=== PATIENT | female | born 1965 | race Caucasian/White ===

== ENCOUNTER 2024-12-23 07:26 | Outpatient (CLI) | payer OTHER, SELFPAY ==
--- NOTE | ~2024-12-23 | CT_ITS ---
CT of the Abdomen and Pelvis: Indication: Abdominal pain Technique: 2.5 mm axial scans were obtained through the abdomen and pelvis following intravenous adm inistration of 100 cc of Omnipaque 350. Dose reduction technique was used on this scan by utilizing a utomated exposure control and iterative reconstruction technique. The dose-length product (DLP) was 1 194.60 mGy-cm. Findings: Scans through the lung bases are unremarkable. The liver, spleen, pancreas, adrenals and kidneys are within normal limits. Cholecystectomy clips ar e present. No evidence of aortic aneurysm. No lymphadenopathy. No bowel obstruction or bowel wall thickening. There is no evidence to suggest acute appendicitis. Images through the pelvis were performed. Urinary bladder unremarkable. 3 cm left adnexal cyst presen t. Status post probable hysterectomy. No ascites. Impression: 3 cm left adnexal cyst. Consider gynecologic follow-up given patient age. No other significant findings. Reviewed, dictated and finalized at [facility]. Impression: 3 cm left adnexal cyst. Consider gynecologic follow-up given patient age. No other significant findings.
--- OUTSIDE RECORDS SUMMARY | 2024-12-23 07:31 | XMS_ITS | Encounter Summary ---
Author Organization [facility] Address [address] [place] [address] Care Team Providers Care Senior Finance Manager Name Role Phone Lien Cortez MD Primary Care Provider Unavailable None, Provider Primary Care Provider Unavaila ble Encounter Details Date Type Department Care Team (Late st Contact Info) Description 03/29/2017 Abstract [place] [address] Lien Cortez MD Social History Tobacco Use Types Packs/Day Years Used Date Smoking Tobacco: Never Assessed Comments Unknown Sex and Gender Information Value Date Recorded Sex Assigned at Female 12/10/2024 10:00 AM CDT Legal Sex Female 9:01 PM CDT Gender Identity Not on file Sexual Orientation Not on file documented as of this encounter Plan of Treatment Not on file documented as of this encounter Visit Diagnoses Not on filedocumented in this encounter Care Teams Senior Finance Manager Relationship Specialty Start Date End Date Lien Cortez MD PCP - General 01/09/15 08/06/17 None, ProviderMD PCP - General UNKNOWN PHYSICIAN SPECIALTY 12/10/24 documented as of this encounter
--- OUTSIDE RECORDS SUMMARY | 2024-12-23 07:31 | XMS_ITS | Encounter Summary ---
Author Organization [facility] Address [address] [place] [address] Care Team Providers Care Reading Assistant Name Role Phone Janette Rodriguez MD Primary Care Provider [phone] Encounter Details Date Type Department Care Team (Latest Contact Info) Description 12/20/2024 Results Follow-Up [facility] at [place] [address] [facility] [address] [address] [place] [address] Jazmine Kent, ANP [address] [facility] [address] [place] [address] TSH REFLEXIVE, HEMOGLOBIN A1C, COMPREHENSIVE METABOLIC PANEL, Additional followed-up results: 3 Social History Tobacco Use Types Packs/Day Years Used Date Smoking Tobacco: Never Smokeless Tobacco: Never Alcohol Use Standard Drinks/Week Comments Yes 0 (1 standard drink = 0.6 oz pure alcohol) Ocassionally- at most3-4 glasses wine / mo Comments No Sex and Gender Information Value Date Recorded Sex Assigned at Not on file Legal Sex Female 3:23 PM CDT Gender Identity Not on file Sexual Orientation Not on file documented as of this encounter Miscellaneous Notes * Result Encounter Note - Nathalie Méndez RN - 12/20/2024 9:28 AM CDT Called patient and relayed message regarding lab results. Patient verbalized understanding. Lab appointment scheduled for 12/21/2024 @ 1100. Per patient, her CT scan is scheduled for 12/23/2024 at [facility]. * Result Encounter Note - Jazmine Kent ANP - 12/20/2024 7:03 AM CDT Contact patient regarding result. Labs negative for inflammation or infection. Potassium is high and needs repeated today or tomorrowplease. Continue to hydrate well. Get CT scan as planned. When / where is it scheduled? documented in this encounter Plan of Treatment Upcoming Encounters Date Type Department Care Team (Late st Contact Info) Description 03/17/2025 10:30 AM CDT Office Visit [facility] at [facility] [employer] [place] [address] [place] [address] Jazmine Kent ANP [address] [facility] [address] [facility] [address] [place] [address] documented as of this encounter Visit Diagnoses Not on filedocumented in this encounter Additional Health Concerns Assessment Noted Time PHQ-9 Depression Total Score: 2 12/17/19 25 11:00 AM CDT documented as of this encounter Care Teams Reading Assistant Relationship Specialty Start Date End Date Janette Rodriguez MD [address] [place] [address] PCP - General Internal Medicine 03/23/24 documented as of this encounter
--- OUTSIDE RECORDS SUMMARY | 2024-12-23 07:31 | XMS_ITS | Clinical Summary ---
Author Organization [facility] Address [facility] [place] [address] Care Team Providers Care Automotive Specialty Technician Name Role Phone None, Provider MD Primary Care Provider Unavaila ble Allergies Active Allergy Reactions Criticality Noted Date Comments Aluminum Itching High 12/10/2024 aluminum Aluminum Oxide Itching Low 03/23/2024 Amitriptyline Unknown 01/11/2015 Cephalexin Unknown 12/10/2024 Codeine Nausea and Vomiting,Vomiting Medium 03/23/2024 Gluten Meal Other (see comment) 03/23/2024 Minocycline Hives Medium 12/10/2024 Oxycodone-Acetaminophen Unknown,Vomiting Medium 2014 Sulfa Antibiotics Unknown,Vomiting Medium 03/23/2024 Sulfamethoxazole-Trimethopri m Hives,Unknown Medium 01/11/2015 Telithromycin Unknown 01/11/2015 Vancomycin Anaphylaxis,Unknown High 01/11/2015 Medications dicyclomine (BENTYL) 10 MG capsuleIndicat ions:Epigastri c pain Take 2 tablet (20 mg total) by mouth every 6 (six) hours for 10 days. 240 capsule 5 Active dicyclomine (BENTYL) 20 MG tabletIndicati ons:Epigastric pain Take 1 tablet (20 mg total) by mouth every 6 (six) hours for 10 days. 40 tablet 5 025 Discontinued(Al ternate therapy) dicyclomine (BENTYL) 10 MG capsuleIndicat ions:Epigastri c pain Take 2 tablet (20 mg total) by mouth every 6 (six) hours for 10 days. 240 capsule 5 025 Discontinued Encounters Date Type Department Care Team Description 12/10/2024 11:20 AM CDT Office Visit [facility] [address] [place] [address] Unruly Norris PA Abdominal Pain (Pt c/o all over abdominal pain X 2 weeks) 12/10/2024 11:10 AM CDT - 12/10/2024 11:59 PM CDT Hospital Encounter [facility] [address] [place], [place] [id number] Unruly Norris PA Discharge Disposition: Home or Self Care (Routine Discharge) 12/10/2024 Telephone [facility] FACILITY DEFAULT Unruly Norris PA Medication Problem 12/10/2024 MyChart Message Enc [facility] Internal Medicine [facility] [address] [place] [address] Unruly Norris PA Results 12/10/2024 Travel from Last 3 Months Family History Medical History Relation Comments Heart Attack Father Pulmonary Fibrosis Father Stroke (cerebrum) ([facility]) Mother Relation Status Comments Father Mother Alive Social History Tobacco Use Types Packs/Day Years Used Date Smoking Tobacco: Never Smokeless Tobacco: Never Tobacco Cessation:Counseling Given: No Alcohol Use Standard Drinks/Week Comments Yes 0 (1 standard drink = 0.6 oz pur e alcohol) social PHQ-2 Answer Date Recorded Patient Health Questionnaire-2 Score 0 12/10/2024 Comments No Sex and Gender Information Value Date Recorded Sex Assigned at Female 12/10/2024 10:00 AM CDT Legal Sex Female 9:01 PM CDT Gender Identity Not on file Sexual Orientation Not on file Last Filed Vital Signs Vital Sign Reading Time Taken Comments Blood Pressure 130/81 12/10/2024 10:32 AM CDT Pulse 74 12/10/2024 10:32 AM CDT Temperature 36.9 C (98.4 F) 12/10/2024 10:32 AM CDT Respiratory Rate 16 12/10/2024 10:32 AM CDT Oxygen Saturation 98% 12/10/2024 10:32 AM CDT Inhaled Oxygen Concentration - - Weight 91.6 kg (202 lb) 12/10/2024 10:32 AM CDT Height 160 cm (5' 3) 12/10/2024 10:32 AM CDT Body Mass Index 35.78 12/10/2024 10:32 AM CDT Plan of Treatment Health Maintenance Due Date Last Done Comments Cervical Cancer Screening Pa p Smear (Age 30 to 64) Every 3 Years 1966 Colorectal Cancer Screening Colonoscopy (10 Years) 1966 Annual Physical 1969 Hepatitis C 1984 DTaP, Tdap and Td Vaccines ( 1 - Tdap) 1985 Hepatitis B Vaccines (1 of 3 - 19+ 3-dose series) 1985 Cervical Cancer Screening Pa p with HPV Testing (Age 30 to 64) Every 5 Years 1996 Cervical Cancer Screening wi th HPV 1996 Mammogram Screening 2006 Pneumococcal Vaccine: 50+ Years (1 of 1 - PCV) 2016 Zoster Vaccines (1 of 2) 2016 COVID-19 Vaccine (3 - 2023-2 5 season) 2024 12/28/2020, 11/30/2020 PHQ-2 (Physician Dickens) Completed 12/10/2024 Meningococcal B Vaccine Aged Out No l onger eligible based on patient's age to complete this topic Meningococcal Vaccine Aged Out No bishop gallo eligible based on patient's age to complete this topic RSV Immunizations Under 20 Months Aged Out No longer eligible b ased on patient's age to complete this topic Procedures Procedure Name Priority Date/Time Associated Diagnosis Comments LIPASE STAT 12/10/2024 11:14 AM CDT Epigastric pain COMPREHENSIVE METABOLIC PANEL STAT 12/10/2024 11:14 AM CDT Epigastric pain from Last 3 Months Results * (ABNORMAL) COMPREHENSIVE METABOLIC PANEL (12/10/2024 11:14 AM CDT) GLUCOSE 104(H) 70 - 99 MG/DL 12/10/2024 11:[address] [facility] BUN 8 7 - 18 MG/DL 12/10/2024 11:34 AM CDT [facility] CREATININE S/P/B 0.83 0.55 - 1.02 MG/DL 12/10/2024 11:[address] [facility] SODIUM S/P/B 142 136 - 145 MMOL/L 12/10/2024 11:34 AM [facility] POTASSIUM S/P/B 4.8 3.5 - 5.1 MMOL/L 12/10/2024 11:[address] [facility] CHLORIDE S/P/B 104 100 - 108 MMOL/L 12/10/2024 11:34 AM [facility] CO2 32.7(H) 21 - 32 MMOL/L 12/10/2024 11:34 AM [facility] CALCIUM S/P/B 9.4 8.5 - 10.1 MG/DL 12/10/2024 11:34 AM [facility] BILIRUBIN TOTAL S/P/B 0.4 0.2 - 1.2 MG/DL 12/10/2024 11:34 AM [facility] TOTAL PROTEIN S/P/B 7.3 6.4 - 8.2 G/DL 12/10/2024 11:34 AM [facility] ALBUMIN S/P/B 3.8 3.4 - 5.0 G/DL 12/10/2024 11:34 AM [facility] AST 19 15 - 37 U/L 12/10/2024 11:34 AM [facility] ALT 24 14 - 55 U/L 12/10/2024 11:34 AM [facility] ALKALINE PHOSPHATASE S/P/B 80 50 - 136 U/L 12/10/2024 11:34 AM [facility] ANION GAP 5.3 5 - 15 MMOL/L 12/10/2024 11:[address] [facility] BUN CREATININE RATIO 9.6 6 - 26 12/10/2024 11:[address] [facility] A/G RATIO 1.1 1.0 - 2.0 RATIO 12/10/2024 11:[address] [facility] GFR ESTIMATE 82(L) >90 ML/MIN/1.7 3 M2 12/10/2024 11:[address] [facility] Comment: NOTE: eGFR is not calculated for patients <18 years of age. This is an estimated GFR calculation using the new CKD EPI creatinine equation without race and so does not require a correction factor for race. This estimated GFR should not be used for calculating drug doses. 12/10/2024 11:1 4 AM CDT [facility] Final Result Performing Organization Address City/[facility]/ZIP Co de Phone Number [facility] [address] [place] [address], [place] [phone] * LIPASE (12/10/2024 11:14 AM CDT) LIPASE 33 16 - 77 UNITS/L 12/10/2024 11:[address] [facility] 12/10/2024 11:1 4 AM CDT [facility] Final Result [facility] [address] [place] [address], [place] [phone] from Last 3 Months Care Teams Automotive Specialty Technician Relationship Specialty Start Date End Date None, Provider, MD PCP - General UNKNOWN PHYSICIAN SPECIALTY 12/10/24
--- OUTSIDE RECORDS SUMMARY | 2024-12-23 07:31 | XMS_ITS | Encounter Summary ---
Author Organization [facility] Address [facility] [place] [address] Care Team Providers Care Judge Name Role Phone None, Provider Primary Care Provider Sal rod Encounter Details Date Type Department Care Team ([facility] st Contact Info) Description 12/10/2024 OLXhart Message Enc [facility] Family [facility] Internal [facility] [address] [place] [address] [place] [id number] [place] [address] Results Social History Tobacco Use Types Packs/Day Years [...] on file documented as of this encounter Functional Status * Over the past 2 weeks, how often have you been bothered by any of the following problems? Question Answer Date of Assessment Author Status Little interest or pleasure in doing things Not at all 12/10/2024 10:39 AM MINAT Ney Bah MA Active Feeling down, depressed, or hopeless Not at all 12/10/2024 10:39 AM MINAT Evangelista Bah MA Active Patient Health Questionnaire-2 Score 0 12/10/2024 10:39 AM Jamison Roger MA Active * If you checked off any problems on this questionnaire so far, Question Answer Date of Assessment Author Status How difficult have these problems made it for you to do your work, take care of things at home, or get along with other people? Not difficult at all 12/10/2024 10:39 AM Ney Roger MA Active documented as of this encounter Plan of Treatment Not on file documented as of this encounter Visit Diagnoses Not on filedocumented in this encounter Care Teams Judge Relationship Specialty Start Date End Date None, Provider, PCP - General UNKNOWN PHYSICIAN SPECIALTY 12/10/24 documented as of this encounter
--- OUTSIDE RECORDS SUMMARY | 2024-12-23 07:31 | XMS_ITS | Clinical Summary ---
Author Organization [facility] [email or web address] [place] Address [address] [place] [address] Care Team Providers Care Lining Strap Closer Name Role Phone Janette Rodriguez MD Primary Care Provider [phone] Allergies Active Allergy Reactions Criticality Noted Date Comments Aluminum Rodriguez Itching Low 03/23/2024 Codeine Nausea and Vomiting Low 03/23/2024 Gluten Other (See Comments) 03/23/2024 Minocycline-Eyelid Cleanser 1 Other (See Comments) 03/23/2024 Issues using the drops. Sulfa (Sulfonamide Antibiotics) Unknown 03/23/2024 Vancomycin Anaphylaxis High 03/23/2024 Medications dicyclomine (BENTYL) 10 mg capsule Take 20 mg by mouth 4 times daily. 12/13/2024 Active Active Problems No known active problems Encounters Date Type Department Care Team Description 12/20/2024 Orders Only [facility] at [facility] [address] [place] [address] Jazmine [place] ANP Hyperkalemia (Primary Dx) 12/20/2024 Results Follow-Up [facility] [place] [address] [place] [address] Jazmine [place] ANP TSH REFLEXIVE, HEMOGLOBIN A1C, COMPREHENSIVE METABOLIC PANEL, Additional followed-up results: 3 12/16/2024 11:00 AM CDT Office Visit [facility] [place] [address] [place] [address] Jazmine [place] ANP Left lower quadrant abdominal pain (Primary Dx); Epigastric abdominal pain; LLQ abdominal pain; Screen for colon cancer; Mixed hyperlipidemia; Celiac disease 12/08/2024 External Device Data [employer] ABSTRACTION Provider, Abstract 12/07/2024 External Device Data [place] ABSTRA[employer] Provider, Abstract 11/09/2024 External Device Data [place] ABSTRA[place] Provider, Abstract 10/14/2024 External Device Data [place] ABSTRA[place] Provider, Abstract 10/13/2024 External Device Data [place] ABSTRA[place] Provider, Abstract 10/12/2024 External Device Data [place] ABSTRA[employer] Provider, Abstract 09/28/2024 External Device Data STL ABSTRACTION Provider, Abstract from Last 3 Months Family History Medical History Relation Name Comments COPD Brother 1 Emphysema Brother 1 Other Daughter Diabetes Father Heart Attack Maternal Grandfather Throat Cancer Maternal Grandfather No Known Problems Maternal Grandmother Sleep Apnea Mother Stroke Mother Dementia Paternal Grandfather Breast Cancer Paternal Grandmother Diabetes Paternal Grandmother Other Son 2 Relation Name Status Comments Brother 1 Alive Brother 2 Alive Brother 3 Alive Daughter Alive Ehlorsfibromyal lisa Father (Age 57) pulmonary fibrosis Maternal Grandfather Maternal Grandmother Mother Alive Paternal Grandfather Paternal Grandmother Sister Alive Son 1 Alive Son 2 Alive fibromyalgia, c hronic fatigue Social History Tobacco Use Types Packs/Day Years Used Date Smoking Tobacco: Never Smokeless Tobacco: Never Tobacco Cessation:Counseling Given: Not Answered Alcohol Use Standard Drinks/Week Comments Yes 0 [...] Sign Reading Time Taken Comments Blood Pressure 120/70 12/16/2024 10:35 AM CDT Pulse 75 12/16/2024 10:35 AM CDT Temperature 36.8 C (98.3 F) 12/16/2024 10:35 AM CDT Respiratory Rate 16 12/16/2024 10:35 AM CDT Oxygen Saturation 99% 12/16/2024 10:35 AM CDT Inhaled Oxygen Concentration - - Weight 92.5 kg (204 lb) 12/16/2024 10:35 AM CDT Height 160 cm (5' 3) 12/16/2024 10:35 AM CDT Body Mass Index 36.14 12/16/2024 10:35 AM CDT Plan of Treatment Upcoming Encounters Date Type Department Care Team (Late st Contact Info) Description 03/17/2025 10:30 AM CDT Office Visit [facility] [place] [address] [facility] [address] [place] [address] Donte Jazmine Sue, ANP [address] [place] [address] Health Maintenance Due Date Last Done Comments DTAP/TDAP/TD VACCINES (1 - Tdap) 1985 HEPATITIS B VACCINES (1 of 3 - 19+ 3-dose series) 1985 HPV/Cotest (21-29) 1987 CERVICAL CANCER SCREENING 1996 HPV/Cotest (30-65) 1996 PAP SMEAR 1996 BREAST CANCER SCREENING 2006 COLORECTAL SCREENING 2011 Colorectal Cancer Screening 2011 FIT-DNA Q 3 years 2011 FIT/FOBT Q 1 year 2011 Flex Sig/CT Colonography Q 5 years 2011 ZOSTER VACCINE (1 of 2) 2016 INFLUENZA VACCINE (#1) 2024 Pre-Diabetes and Diabetes Screening 12/17/202712/16, 03/23/2024 Procedures Procedure Name Priority Date/Time Associated Diagnosis Comments CBC WITH DIFFERENTIAL Routine 12/16/2024 11:24 AM CDT LLQ abdominal pain C-REACTIVE PROTEIN Routine 12/16/2024 11 :24 AM CDT LLQ abdominal pain COMPREHENSIVE METABOLIC PANEL Routine 12/16/2024 11:24 AM CDT LLQ abdominal pain HEMOGLOBIN A1C Routine 12/16/2024 11:24 AM CDT LLQ abdominal pain TSH REFLEXIVE Routine 12/16/2024 11:24 AM CDT LLQ abdominal pain POC URINALYSIS DIPSTICK AUTOMATED Routine 12/16/2024 11:00 AM CDT LLQ abdominal pain from Last 3 Months Results * TSH REFLEXIVE (12/16/2024 11:24 AM CDT) Pathologist [facility] TSH 1.30 0.40 - 4.50 mIU/L [facility] Comment: Test Performed at: [facility] [address] [place] [address] Brenda Hebert MD Blood 12/16/2024 11:2 4 AM CDT 12/17/2024 5:20 AM CDT us Jazmine [place] [facility] CHEMISTRY ORDERABLES Final R esult [facility] [phone] [facility] [address] [place] [address] * (ABNORMAL) CBC WITH DIFFERENTIAL (12/16/2024 11:24 AM CDT) [facility] WBC 8.1 3.8 - 10.8 Thousand/u L [facility] RBC 4.63 3.80 - 5.10 Million/uL [facility] HEMOGLOBIN 13.7 11.7 - 15.5 g/dL [facility] HEMATOCRIT 45.2(H) 35.0 - 45.0 % [facility] MCV 97.6 80.0 - 100.0 fL [facility] MCH 29.6 27.0 - 33.0 pg [facility] MCHC 30.3(L) 32.0 - 36.0 g/dL [facility] Comment: For adults, a slight decrease in the calculated MCHC value (in the range of 30 to 32 g/dL) is most likely not clinically significant; however, it should be interpreted with caution in correlation with other red cell parameters and the patient's clinical condition. RDW 13.6 11.0 - 15.0 % [facility] PLATELETS 309 140 - 400 Thousand/u L [facility] MPV 10.2 7.5 - 12.5 fL [facility] NEUTROPHIL ABSOLUTE 4,585 1,500 - 7,800 cells/uL [facility] LYMPHOCYTE ABSOLUTE 2,082 850 - 3,900 cells/uL [facility] MONOCYTE ABSOLUTE 486 200 - 950 cells/uL [facility] EOSINOPHIL ABSOLUTE 875(H) 15 - 500 cells/uL [facility] BASOPHILS ABSOLUTE 73 0 - 200 cells/uL [facility] NEUTROPHIL 56.6 % [facility] LYMPHOCYTES 25.7 % [facility] MONOCYTE 6.0 % [facility] EOSINOPHILS 10.8 % [facility] BASOPHILS 0.9 % [facility] Comment: Test Performed at: [facility] [address] [place] [phone] Brenda Hebert MD Blood 12/16/2024 11:2 4 AM CDT 12/17/2024 5:20 AM CDT us Jazmine [place] ANP HEMATOLOGY ORDERABLES Final Result Performing Organization Address City/[facility] Co de Phone Number [facility] [phone] [facility] [address] [place] [address] * C-REACTIVE PROTEIN (12/16/2024 11:24 AM CDT) CRP <3.0 <8.0 mg/L [facility] Comment: Test Performed at: [facility] [address] [place] [address] Brenda Hebert MD Blood 12/16/2024 11:2 4 AM CDT 12/17/2024 5:20 AM CDT us Jazmine [place] ANP CHEMISTRY ORDERABLES Final R esult [facility] [phone] [facility] [address] [place] [address] * HEMOGLOBIN A1C (12/16/2024 11:24 AM CDT) [facility] HEMOGLOBIN A1C 5.2 <5.7 % [facility] Comment: For the purpose of screening for the presence of diabetes: <5.7% Consistent with the absence of diabetes 5.7-6.4% Consistent with increased risk for diabetes (prediabetes) > or =6.5% Consistent with diabetes This assay result is consistent with a decreased risk of diabetes. Currently, no consensus exists regarding use of hemoglobin A1c for diagnosis of diabetes in children. According to [place] Diabetes Association (ADA) guidelines, hemoglobin A1c <7.0% represents optimal control in non- diabetic patients. Different metrics may apply to specific patient populations. Standards of Medical Care in Diabetes(ADA). ESTIMATED AVERAGE GLUCOSE (MG/DL) 103 mg/dL [facility] ESTIMATED AVERAGE GLUCOSE (MMOL/L) 5.7 mmol/L [facility] Comment: Test Performed at: [facility] [address] [place] [phone] Brenda Hebert MD Blood 12/16/2024 11:2 4 AM CDT 12/17/2024 5:20 AM CDT us Jazmine Kent [facility] CHEMISTRY ORDERABLES Final R esult [facility] [phone] [facility] [address] [place] [address] * (ABNORMAL) COMPREHENSIVE METABOLIC PANEL (12/16/2024 11:24 AM CDT) [facility] GLUCOSE 95 65 - 99 mg/dL [facility] Comment: Fasting reference interval BUN 8 7 - 25 mg/dL [facility] CREATININE 0.75 0.50 - 1.03 mg/dL [facility] GFR 92 > OR = 60 mL/min/1. 73m2 [facility] BUN/CREAT RATIO SEE NOTE: 6 (calc) [facility] Comment: Not Reported: BUN and Creatinine are within reference range. SODIUM 144 135 - 146 mmol/L [facility] POTASSIUM 5.5(H) 3.5 - 5.3 mmol/L [facility] CHLORIDE 106 98 - 110 mmol/L [facility] CO2 28 20 - 32 mmol/L [facility] CALCIUM 9.7 8.6 - 10.4 mg/dL [facility] TOTAL PROTEIN 6.8 6.1 - 8.1 g/dL [facility] ALBUMIN 4.5 3.6 - 5.1 g/dL [facility] GLOBULIN 2.3 1.9 - 3.7 g/dL (calc) [facility] ALBUMIN/GLOBULIN RATIO 2.0 1.0 - 2.5 (calc) [facility] BILIRUBIN TOTAL 0.3 0.2 - 1.2 mg/dL [facility] ALKALINE PHOSPHATASE 58 37 - 153 U/L [facility] AST 18 10 - 35 U/L [facility] ALT 16 6 - 29 U/L [facility] Comment: Test Performed at: [facility] [id number] [place] [address] Brenda Hebert MD Blood 12/16/2024 11:2 4 AM CDT 12/17/2024 5:20 AM CDT us Jazmine Kent [facility] CHEMISTRY ORDERABLES Final R esult [facility] [phone] [facility] [address] [place] [address] * POC URINALYSIS DIPSTICK AUTOMATED (12/16/2024 11:00 AM CDT) COLOR UA POC Yellow Pale to Dark Yellow [facility] [place] CLARITY UA POC Clear Clear, Other [facility] [place] GLUCOSE UA POC Negative Negative, Normal [facility] [place] BILIRUBIN UA POC Negative Negative [facility] KETONES UA POC Negative Negative [facility] SPECIFIC GRAVITY UA POC 1.015 1.000 - 1.030 [facility] BLOOD UA POC Negative Negative [facility] PH UA POC 7.0 5.0 - 8.0 [facility] PROTEIN UA POC Negative Negative [facility] UROBILINOGEN UA POC 0.2 <2.0 mg/dL [facility] NITRITE UA POC Negative Negative [facility] LEUKOCYTE ESTERASE UA POC Negative Negative [facility] KIT LOT NUMBER POC [phone] [facility] KIT EXP DATE POC 03/25/25 [facility] Urine 12/16/2024 11:0 0 AM CDT us Jazmine [place] ANP POINT OF CARE TESTING Final Result [facility] CLIA# [id number] [address] [address] from Last 3 Months Care Teams Lining Strap Closer Relationship Specialty Start Date End Date Janette Rodriguez MD [address] [place], [place] [address] [address] PCP - General Internal Medicine 03/23/24
== END 2024-12-23 07:27 | disposition home or self-care (01) ==
PROVIDERS: PCP Nurse Practitioner Adult Health; Visit Provider Nurse Practitioner Adult Health
DX: N83.202 Unspecified ovarian cyst, left side (principal)
CPT/HCPCS: 74177; Q9967

== ENCOUNTER 2025-01-14 09:16 | Outpatient (CLI) | payer OTHER, SELFPAY ==
--- OUTSIDE RECORDS SUMMARY | 1999-09-27 09:45 | XMS_ITS | Continuity of Care Document ---
Author Organization [facility] Address [address] [place] [address] [place] [address] Phone Care Team Providers Care Geriatric Nurse Name Role Phone Unavailable Unavailable Unavailable Advance Directives Directive Yes / No Effective Date File Name No Information Encounters Encounter Description Practice Location Reason(s) For Visit Diagnoses Date Provider Providers Copied on Encounter [facility], [id number] [place] [address] [address], [place], [place], [id number], [place] tel:[phone] [address] [facility] No Information May-0 4-200 0 No Information Family History Family Member Type Diagnosis Age At Onset No Information Payers Payer name Insurance type Covered constitution party ID Authoriza tion(s) No Information Social History Type Description Quantity Date Captured Comments Sex Female Smoking Status No Information Chief Complaint And Reason For Visit No Information Reason For Referral Reason For Referral No Information History Of Present Illness Encounter Date Complaint History Of Prese nt Illness No Information Functional Status Date Functional Assessmen t No Information Instructions Date Instruction Additional Infor mation No Information Assessments Type Assessment Date No Information Patient Care Teams Name Effective Dates (start - stop) Status Members No Information
--- OUTSIDE RECORDS SUMMARY | 2025-01-14 09:21 | XMS_ITS | Encounter Summary ---
Author Organization [employer] Address [address] [place] [address] Care Team Providers Care Nonprofit Director Name Role Phone Janette Rodriguez MD Primary Care Provider [phone] Reason for Visit * Reason Onset Date Comments Referral 01/13/2025 Encounter Details Date Type Department Care Team (Late Contact Info) Description 01/13/2025 Telephone [facility] [place] [address] [place] [address] [place]az[place] [address] [facility] [address] [place] [address] Referral Social History Tobacco Use Types Packs/Day Years [...] as of this encounter Miscellaneous Notes * Telephone Encounter - Huan Tiwari - 01/13/2025 3:46 PM CDT Patient called and she has seen 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 She said she has seen you for the issues so she was hoping you would put in a referralfor her. documented in this encounter Plan of Treatment Upcoming Encounters Date Type Department Care Team (Late st Contact Info) Description 01/20/2025 8:40 AM CDT Procedure visit [facility] [place] [address] [place] [address] 03/17/2025 10:30 AM CDT Office Visit [facility] at [facility] [place] [address] [place] [address] [place] [address] [facility] [address] [facility] [address] [place] [address] documented as of this encounter Visit Diagnoses Not on filedocumented in this encounter Additional Health Concerns Assessment Noted Time PHQ-9 Depression Total Score: 2 12/17/19 25 11:00 AM CDT documented as of this encounter Care Teams Nonprofit Director Relationship Specialty Start Date End Date Janette Rodriguez MD [address] [place] [address] PCP - General Internal Medicine 03/23/24 documented as of this encounter
--- OUTSIDE RECORDS SUMMARY | 2025-01-14 09:21 | XMS_ITS | Clinical Summary ---
Author Organization [facility] [employer] [place] Address [address] [place] [address] [address] [address] Care Team Providers Care Cargo Supervisor Name Role Phone Janette Rodriguez MD Primary Care Provider [phone] Allergies Active Allergy Reactions Criticality Noted Date [...] Encounters Date Type Department Care Team Description 01/13/2025 Telephone [facility] at [facility] [place] [address] [place] [address] [place] [address] Jazmine [place], TOÑO Referral 12/30/2024 Orders Only [facility] at [facility] [employer] [place] [address] [place] [address] [place] [address] Janeth Zhu abdominal pain; Left lower quadrant abdominal pain 12/30/2024 Orders Only [facility] at [facility] [facility] [place] [address] [place] [address] [place] [address] Jazmine [place], TOÑO Mixed hyperlipidemia (Primary Dx) 12/28/2024 External Device Data STL ABSTRACTION Provider, Abstract 12/20/2024 Orders Only [facility] at [facility] [facility] [place] [address] [place] [address] [place] [address] Jazmine [place], TOÑO Hyperkalemia (Primary Dx) 12/20/2024 Results Follow-Up [facility] [address] [place] [address] Jazmine [place], TOÑO TSH REFLEXIVE, HEMOGLOBIN A1C, COMPREHENSIVE METABOLIC PANEL, Additional followed-up results: 4 12/16/2024 11:00 AM CDT Office Visit [facility] [employer] [address] [place] [address] Jazmine [place], TOÑO Left lower quadrant abdominal pain (Primary Dx); [...] Description 01/20/2025 8:40 AM CDT Procedure visit [facility] [facility] [place] [address] [place] [address] 03/17/2025 10:30 AM CDT Office Visit [facility] at Work [facility] [employer] [place] [address] [place] [address] Jazmine [place], [place]P [address] [facility] [address] [place] [address] Health Maintenance Due Date Last [...] Procedure Name Priority Date/Time Associated Diagnosis Comments CT ABDOMEN PELVIS W CONTRAST Routine 12/23/2024 LLQ abdominal pain Left lower quadrant abdominal pain CBC WITH DIFFERENTIAL Routine 12/16/2024 11:24 AM [...] pain from Last 3 Months Results * CT ABDOMEN PELVIS W CONTRAST (12/23/2024) Anatomical Region Laterality Modality Abdomen Computed Tomogra phy Jazmine [place] ANP CT ORDERABLES Final Result * TSH REFLEXIVE (12/16/2024 11:24 AM CDT) TSH 1.30 0.40 - 4.50 mIU/L [facility] Comment: Test Performed at: [employer] [facility] [address] [place] [address] Brenda Hebert MD Blood 12/16/2024 11:2 4 AM CDT 12/17/2024 5:20 AM CDT Jazmine [place] ANP CHEMISTRY ORDERABLES Final R esult [facility] [phone] [facility] [address] [place] [address] * (ABNORMAL) CBC WITH DIFFERENTIAL (12/16/2024 11:24 AM CDT) Pathologist [facility] WBC 8.1 3.8 - 10.8 Thousand/u L [...] [facility] Comment: Test Performed at: [facility] [address] [place] [address] Brenda Hebert MD Blood 12/16/2024 11:2 4 AM CDT 12/17/2024 5:20 AM CDT Jazmine [place] ANP HEMATOLOGY ORDERABLES Final Result Performing Organization Address City/[facility] Co de Phone Number [facility] [phone] [facility] [address] [place] [address] * C-REACTIVE PROTEIN (12/16/2024 11:24 AM CDT) CRP <3.0 <8.0 mg/L [facility] Comment: Test Performed at: [employer] [facility] [address] [place] [address] Brenda Hebert MD Blood 12/16/2024 11:2 4 AM CDT 12/17/2024 5:20 AM CDT Jaz[place] ANP CHEMISTRY ORDERABLES Final R esult Performing Organization Address [facility] de Phone Number [facility] [phone] [address] * HEMOGLOBIN A1C (12/16/2024 11:24 AM CDT) HEMOGLOBIN A1C 5.2 <5.7 % [facility] Comment: For the purpose of screening for the presence of diabetes: <5.7% Consistent with the absence of diabetes 5.7-6.4% Consistent with increased risk for diabetes (prediabetes) > or =6.5% Consistent with diabetes This assay result is consistent with a decreased risk of diabetes. Currently, no consensus exists regarding use of hemoglobin A1c for diagnosis of diabetes in children. According to [place] Diabetes Association (ADA) guidelines, hemoglobin A1c <7.0% represents optimal control in non- diabetic patients. Different metrics may apply to specific patient populations. Standards of Medical Care in Diabetes(ADA). ESTIMATED AVERAGE GLUCOSE (MG/DL) 103 mg/dL [facility] ESTIMATED AVERAGE GLUCOSE (MMOL/L) 5.7 mmol/L [facility] Comment: Test Performed at: [facility] [address] [facility] [address] Brenda He[place] MD Blood 12/16/2024 11:2 4 AM CDT 12/17/2024 5:20 AM CDT us Jazmine Riley Donte [facility] CHEMISTRY ORDERABLES Final R esult [facility] [phone] [facility] [address] [address] [address] * (ABNORMAL) COMPREHENSIVE METABOLIC PANEL (12/16/2024 11:24 AM CDT) GLUCOSE 95 65 - 99 mg/dL [facility] Comment: Fasting reference interval BUN 8 7 - 25 mg/dL [facility] CREATININE 0.75 0.50 - 1.03 mg/dL [facility] GFR 92 > OR = 60 mL/min/1. 73m2 [facility] BUN/CREAT RATIO SEE NOTE: 6 - 22 (calc) [facility] Comment: Not Reported: [...] [facility] Comment: Test Performed at: [facility] [address] [facility] [place] [address] Brenda Hebert MD Blood 12/16/2024 11:2 4 AM CDT 12/17/2024 5:20 AM CDT us Jazmine [place] ANP CHEMISTRY ORDERABLES Final R esult [facility] [phone] [facility] [address] [facility] [place] [address] * POC URINALYSIS DIPSTICK AUTOMATED (12/16/2024 11:00 AM CDT) COLOR UA POC Yellow Pale to Dark Yellow [facility] CLARITY UA POC Clear Clear, Other [facility] GLUCOSE UA POC Negative Negative, Normal [facility] BILIRUBIN UA POC Negative Negative [facility] KETONES UA POC Negative Negative [facility] SPECIFIC GRAVITY UA POC 1.015 1.000 - 1.030 [facility] BLOOD UA POC Negative Negative [facility] UA POC 7.0 5.0 - 8.0 [facility] PROTEIN UA POC Negative Negative [facility] UROBILINOGEN UA POC 0.2 <2.0 mg/dL [facility] [place] NITRITE UA POC Negative Negative [facility] LEUKOCYTE ESTERASE UA POC Negative Negative [facility] IL KIT LOT NUMBER POC [phone] [facility] [place] KIT EXP DATE POC 03/25/25 [facility] Urine 12/16/2024 11:0 0 AM CDT us Jazmine [place] ANP POINT OF CARE TESTING Final Result [facility] CLIA# [id number] [facility] [address] [address] from Last 3 Months Care Teams Cargo Supervisor Relationship Specialty Start Date End Date Janette [place] MD [address] [place] [address] PCP - General Internal Medicine 03/23/24
--- OUTSIDE RECORDS SUMMARY | 2025-01-14 09:21 | XMS_ITS | Clinical Summary ---
Author Organization [facility] Address [address] [place] [id number] Care Team Providers Care Trolley Cleaner Name Role Phone None, Provider MD Primary [...] High 01/11/2015 Medications dicyclomine (BENTYL) 10 MG capsuleIndicatio ns:Epigastric pain Take 2 tablet (20 mg total) by mouth every 6 (six) hours for 10 days. 240 capsule 12/13/2024 Active Encounters Date Type Department Care Team Description 12/10/2024 11:20 AM CDT Office Visit [facility] Family & Internal Medicine [facility] [address] [place] [address] Unruly Norris PA Abdominal Pain (Pt c/o all over abdominal pain X 2 weeks) 12/10/2024 11:10 AM CDT - 12/10/2024 11:59 PM CDT Hospital Encounter [facility] [id number] [place] [address] Unruly Norris PA Discharge Disposition: Home or Self Care (Routine Discharge) 12/10/2024 Telephone [facility] DEFAULT Unruly Norris PA Medication Problem 12/10/2024 MyChart Message Enc [facility] Family & Internal Medicine [facility] [address] [place] [address] Unruly Norris PA Results 12/10/2024 Travel from Last 3 Months Family History Medical History Relation Comments Heart Attack Father Pulmonary Fibrosis Father Stroke (cerebrum) ([facility]) Mother Relation Status Comments Father Mother Alive [...] 5 season) 2024 12/28/2020, 11/30/2020 PHQ-2 (Physician Arnot) Completed 12/10/2024 Meningococcal B Vaccine Aged Out [...] - 99 MG/DL 12/10/2024 11:34 AM CDT [facility] BUN 8 7 - 18 MG/DL 12/10/2024 11:34 AM CDT [facility] CREATININE S/P/B 0.83 0.55 - 1.02 MG/DL 12/10/2024 11:34 AM CDT [facility] SODIUM S/P/B 142 136 - 145 MMOL/L 12/10/2024 11:34 AM CDT [facility] POTASSIUM S/P/B 4.8 3.5 - 5.1 MMOL/L 12/10/2024 11:34 AM [facility] CHLORIDE S/P/B 104 100 - 108 MMOL/L 12/10/2024 11:34 AM [facility] CO2 32.7(H) 21 - 32 MMOL/L 12/10/2024 11:34 AM [facility] CALCIUM S/P/B 9.4 8.5 - 10.1 MG/DL 12/10/2024 11:34 AM [facility] BILIRUBIN TOTAL S/P/B 0.4 0.2 - 1.2 MG/DL 12/10/2024 11:34 AM [facility] TOTAL PROTEIN S/P/B 7.3 6.4 - 8.2 G/DL 12/10/2024 11:34 AM [facility] ALBUMIN S/P/B 3.8 3.4 - 5.0 G/DL 12/10/2024 11:34 AM [facility] AST 19 15 - 37 U/L 12/10/2024 11:34 AM [facility] ALT 24 14 - 55 U/L 12/10/2024 11:34 AM [facility] ALKALINE PHOSPHATASE S/P/B 80 50 - 136 U/L 12/10/2024 11:34 AM [facility] ANION GAP 5.3 5 - 15 MMOL/L 12/10/2024 11:34 AM [facility] BUN CREATININE RATIO 9.6 6 - 26 12/10/2024 11:34 AM [facility] A/G RATIO 1.1 1.0 - 2.0 RATIO 12/10/2024 11:34 AM [facility] GFR ESTIMATE 82(L) >90 ML/MIN/1.7 3 M2 12/10/2024 11:34 AM CDT [facility] Comment: NOTE: eGFR is not calculated for patients <18 years of age. This is an estimated GFR calculation using the new CKD EPI creatinine equation without race and so does not require a correction factor for race. This estimated GFR should not be used for calculating drug doses. 12/10/2024 11:1 4 AM CDT us [facility] Final Result Performing Organization Address City/[facility]/ZIP Co de Phone Number [facility] [address] [place] [address], [place] [phone] * LIPASE (12/10/2024 11:14 AM CDT) LIPASE 33 16 - 77 UNITS/L 12/10/2024 11:34 AM CDT [facility] 12/10/2024 11:1 4 AM CDT us [facility] Final Result [facility] [address] [place] [address], [place] [phone] from Last 3 Months Care Teams Trolley Cleaner Relationship Specialty Start Date End Date None, Provider, MD PCP - General UNKNOWN PHYSICIAN SPECIALTY 12/10/24
--- OUTSIDE RECORDS SUMMARY | 2025-01-14 09:21 | XMS_ITS | Encounter Summary ---
Author Organization [facility] Address [address] [place] [address] Care Team Providers Care Pipe Fitter Name Role Phone Lien Cortez MD Primary Care Provider Unavailable None, Provider Primary Care Provider Unavaila ble Encounter Details Date Type Department Care Team (Late st Contact Info) Description 03/29/2017 [place] [address] Lien Cortez MD Social History Tobacco Use [...] on filedocumented in this encounter Care Teams Pipe Fitter Relationship Specialty Start Date End Date Lien Cortez MD PCP - General 01/09/15 08/06/17 None, ProviderMD PCP - General UNKNOWN PHYSICIAN SPECIALTY 12/10/24 documented as of this encounter
--- OUTSIDE RECORDS SUMMARY | 2025-01-14 09:21 | XMS_ITS | Encounter Summary ---
Author Organization [facility] Address [facility] [place] [address] Care Team Providers Care Hog Sticker Name Role Phone None, Provider Primary Care Provider Sal rod Encounter Details Date Type Department Care Team ([facility] st Contact Info) Description 12/10/2024 Mocavohart Message Enc [facility] Family & Internal Medicine [facility] [address] [place] [address] [place] Norris [place] [id number] [place] [address] Results Social History Tobacco Use Types [...] on filedocumented in this encounter Care Teams Hog Sticker Relationship Specialty Start Date End Date None, Provider, PCP - General UNKNOWN PHYSICIAN SPECIALTY 12/10/24 documented as of this encounter
== END 2025-01-14 09:17 | disposition home or self-care (01) ==
PROVIDERS: Visit Provider Student in an Organized Health Care Education/Training Program
DX: N94.89 Other specified conditions associated with female genital organs and menstrual cycle (principal)
CPT/HCPCS: 86304